=== PATIENT | female | born 1995 | race Caucasian/White ===

== ENCOUNTER 2019-08-08 09:18 | Emergency (ER) | payer BC ==
[~2019-08-08] VITALS: Ht 165.1 cm; Wt 57.2 kg
[2019-08-08 09:22] VITALS: Ht 165.1 cm; Wt 57.2 kg
[2019-08-08 11:00] LABS: BASOPHIL % 0.2 % (0-2); PLATELET COUNT 304 x10^3mcL (130-400); RED CELL DISTRIBUTION WIDTH 13.5 % (11.5-14.5)
[2019-08-08 11:17] LABS: CALCIUM 8.6 mg/dL (8.5-10.1); CARBON DIOXIDE 29.1 mmol/L (21-32); CHLORIDE SERUM 106 mmol/L (98-107); CREATININE SERUM 0.6 mg/dL (0.6-1.0); GFR1 > 60 mL/min; GLUCOSE SERUM 79 mg/dL (74-106); SODIUM SERUM 142 mmol/L (136-145)
[2019-08-08 11:22] LABS: FREE T4 0.95 ng/dL (0.76-1.46); FREE THYROXINE INDEX 2.7 ug/dL (1.4-4.5); T4(THYROXINE) 8.5 ug/dL (4.7-13.3)
[2019-08-08 11:23] LABS: ALBUMIN 4.1 g/dL (3.4-5.0); ALKALINE PHOSPHATASE 58 U/L (46-116); ALT/SGPT 22 U/L (14-59); AST/SGOT 15 U/L (15-37); BILIRUBIN TOTAL 0.4 mg/dL (0.20-1.00); TOTAL PROTEIN, SERUM 7.7 g/dL (6.4-8.2)
[2019-08-08 11:25] LABS: T3 TOTAL 0.93 ng/mL
[2019-08-08 11:31] LABS: CHOLESTEROL 116 mg/dL (<200); CHOLESTEROL/HDL RATIO 1.5; HDL CHOLESTEROL 79 mg/dL (40-60); TRIGLYCERIDES 21 mg/dL (<150)
[2019-08-08 11:41] LABS: UA SPECIFIC GRAVITY 1.015 (1.005-1.035); microscopic required? YES; urine erythrocyte NEGATIVE (NEGATIVE)
[2019-08-08 12:07] VITALS: BP 109/64
== END 2019-08-08 12:07 | disposition home or self-care (01) ==
LOC: ED 09:18
PROVIDERS: Specialist
DX: R42 Dizziness and giddiness (principal); R55 Syncope and collapse
CPT/HCPCS: 36415; 82962; 84439; Q0092

== ENCOUNTER 2019-09-02 19:04 | Emergency (ER) | payer BC ==
[~2019-09-02] VITALS: Ht 165.1 cm; Wt 56.2 kg
[2019-09-02 19:13] VITALS: BP 133/85; Ht 165.1 cm; Wt 56.2 kg
== END 2019-09-02 21:22 | disposition home or self-care (01) ==
LOC: ED 19:04
DX: M25.561 Pain in right knee (principal)

== ENCOUNTER 2019-09-25 17:03 | Emergency (ER) | payer BC ==
[~2019-09-25] VITALS: Ht 157.5 cm; Wt 57.6 kg
[2019-09-25 17:13] VITALS: Ht 157.5 cm; Wt 57.6 kg
[2019-09-25 19:02] VITALS: BP 141/76
== END 2019-09-25 19:02 | disposition home or self-care (01) ==
LOC: ED 17:03
DX: F41.9 Anxiety disorder, unspecified (principal)
CPT/HCPCS: J2060

== ENCOUNTER 2019-09-28 10:15 | Emergency (ER) | payer BC ==
[~2019-09-28] VITALS: Ht 162.6 cm; Wt 57.6 kg
[2019-09-28 10:43] VITALS: Ht 162.6 cm; Wt 57.6 kg
[2019-09-28 12:39] VITALS: BP 110/52
== END 2019-09-28 12:39 | disposition home or self-care (01) ==
LOC: ED 10:15
DX: F41.9 Anxiety disorder, unspecified (principal)

== ENCOUNTER 2020-04-20 19:21 | Emergency (ER) | payer MEDICAID ==
[~2020-04-20] VITALS: Ht 165.1 cm; Wt 59.0 kg
[2020-04-20 19:25] VITALS: Ht 165.1 cm; Wt 59.0 kg
[2020-04-20 19:55] VITALS: BP 120/69
== END 2020-04-20 19:55 | disposition home or self-care (01) ==
LOC: ED 19:21
DX: S93.402A Sprain of unspecified ligament of left ankle, initial encounter (principal); X50.1XXA Overexertion from prolonged static or awkward postures, initial encounter; Y93.89 Activity, other specified; Y92.89 Other specified places as the place of occurrence of the external cause; Y99.8 Other external cause status
CPT/HCPCS: Q0092

== ENCOUNTER 2020-06-02 10:34 | Emergency (ER) | payer SELFPAY ==
[~2020-06-02] VITALS: Ht 162.6 cm; Wt 61.2 kg
[2020-06-02 10:41] VITALS: BP 129/78; Ht 162.6 cm; Wt 61.2 kg
== END 2020-06-02 12:11 | disposition home or self-care (01) ==
LOC: ED 10:34
DX: H61.21 Impacted cerumen, right ear (principal)